=== PATIENT | female | born 1990 | race Caucasian/White ===

== ENCOUNTER 2022-06-26 21:05 | Emergency (ER) | payer SELFPAY ==
[2022-06-26] MEDS ORDERED: traMADol 50 MG Tab PO ONE (21:25)
[2022-06-26 21:47] VITALS: BP 124/61; PULSE 59
== END 2022-06-26 21:40 | disposition home or self-care (01) ==
LOC: MW.ED 21:05
DX: K04.7 Periapical abscess without sinus (principal)
CPT/HCPCS: 99282; A9270

== ENCOUNTER 2023-04-11 14:29 | Emergency (ER) | payer SELFPAY ==
[2023-04-11] MEDS ORDERED: Sodium Chloride 0.9% 10 ML Syringe FLUSH PRN (14:50)
[2023-04-11] MEDS ORDERED: Sodium Chloride 0.9% 2.5 ML Syringe FLUSH PRN (14:50)
[2023-04-11 15:13] LABS: BASOPHILS PERCENT AUTO 0.3 % (0.0-1.5); EOSINOPHILS ABSOLUTE AUTO 0.3 K/uL (0.0-0.7); EOSINOPHILS PERCENT AUTO 4.8 % (0.0-7.0); HEMATOCRIT 39.3 % (36.0-46.0); HEMOGLOBIN 13.7 g/dL (12.0-16.0); LYMPHOCYTES ABSOLUTE AUTO 2.5 K/uL (0.6-2.4); LYMPHOCYTES PERCENT AUTO 34.8 % (16.0-40.0); MEAN CORPUSCULAR HEMOGLOBIN 31.6 pg (27.0-32.0); MEAN CORPUSCULAR HGB CONC 34.9 g/dL (31.0-37.0); MEAN CORPUSCULAR VOLUME 90.6 fL (80.0-98.0); MONOCYTES ABSOLUTE AUTO 0.5 K/uL (0.0-0.8); MONOCYTES PERCENT AUTO 7.5 % (0.0-15.0); NEUTROPHILS ABSOLUTE AUTO 3.7 K/uL (1.4-5.7); NEUTROPHILS PERCENT AUTO 52.6 % (48.0-80.0); NRBC ABSOLUTE 0 K/uL; PLATELET COUNT,PLT 321 K/uL (150-400); RED BLOOD CELL COUNT 4.34 M/uL (4.30-5.90)
[2023-04-11 15:45] LABS: A/G RATIO 0.8 (0.9-1.6); ALANINE AMINOTRANSFERASE,ALT 36 IU/L (14-63); ALBUMIN 3.5 g/dL (3.4-5.0); ALKALINE PHOSPHATASE 70 U/L (46-116); ASPARTATE AMNIOTRANSFERASE,AST 25 IU/L (15-37); BILIRUBIN TOTAL 0.3 mg/dL (0.2-1.0); BLOOD UREA NITROGEN,BUN 9 mg/dL (7.0-18.0); CALCIUM 8.4 mg/dL (8.5-10.1); CARBON DIOXIDE,CO2 21.9 mmol/L (21.0-32.0); CHLORIDE,CL 107 mmol/L (98-107); CREATININE 0.7 mg/dL (0.6-1.0); EST CRCL DRUG DOSING (CG) 83.64 mL/min; GLUCOSE RANDOM 90 mg/dL (74-106); LIPASE 35 U/L (16-77); POTASSIUM,K 3.4 mmol/L (3.5-5.1); PROTEIN TOTAL,TP 7.7 g/dL (6.4-8.2); SODIUM,NA 141 mmol/L (136-145); TSH ULTRASENSITIVE 1.52 uIU/mL (0.36-3.74)
[2023-04-11 15:47] LABS: ESTIMATED GFR 119 mL/min (>60)
[2023-04-11] MEDS ORDERED: Potassium Chloride 10% 20 MEQ/15 ML Soln 15 ML UD Cup PO ONE (16:00)
[2023-04-11 18:15] VITALS: BP 124/74; PULSE 78
== END 2023-04-11 18:15 | disposition home or self-care (01) ==
LOC: MW.ED 14:29
DX: R07.89 Other chest pain (principal); E87.6 Hypokalemia
CPT/HCPCS: 36415; 71046; 80053; 83690; 84443; 84484; 84703; 85025; 85379; 93005; 99285; A9270; J3490; 93010; 99283

== ENCOUNTER 2023-07-14 11:07 | Emergency (ER) | payer SELFPAY ==
[2023-07-14] MEDS ORDERED: Ondansetron 4 MG/2 ML SDV IVPUSH ONE (11:59)
[2023-07-14] MEDS ORDERED: Sodium Chloride 0.9% 1,000 ML IV ONE (11:59)
[2023-07-14] MEDS ORDERED: Morphine 4 MG/ML Syringe IVPUSH ONE (11:59)
[2023-07-14] MEDS ORDERED: Famotidine 20 MG/2 ML SDV IVPUSH ONE (12:00)
[2023-07-14] MEDS ORDERED: Alum Hydro/Mag Hydro/Simeth XS 15 ML, Lidocaine 2% 5 ML PO ONE ×2 (12:00)
[2023-07-14 12:08] LABS: BASOPHILS ABSOLUTE AUTO 0.05 K/uL (0.00-0.20); BASOPHILS PERCENT AUTO 0.5 % (0.0-1.0); EOSINOPHILS ABSOLUTE AUTO 0.22 K/uL (0.00-0.45); EOSINOPHILS PERCENT AUTO 2.4 % (0.0-6.0); HEMATOCRIT 43.1 % (37.0-47.0); HEMOGLOBIN 15.4 g/dL (12.0-16.0); IMMATURE GRAN ABSOLUTE AUTO 0.01 K/uL (0.00-0.05); IMMATURE GRAN PERCENT AUTO 0.1 % (0.0-0.4); LYMPHOCYTES ABSOLUTE AUTO 2.12 K/uL (1.00-4.80); LYMPHOCYTES PERCENT AUTO 23.1 % (24.0-44.0); MEAN CORPUSCULAR HEMOGLOBIN 31.6 pg (28.0-32.0); MEAN CORPUSCULAR HGB CONC 35.7 g/dL (32.0-36.0); MEAN CORPUSCULAR VOLUME 88.5 fL (83.0-99.0); MEAN PLATELET VOLUME 9.6 fL (9.4-12.3); MONOCYTES ABSOLUTE AUTO 0.39 K/uL (0.00-0.80); MONOCYTES PERCENT AUTO 4.2 % (0.0-8.0); NEUTROPHILS ABSOLUTE AUTO 6.39 K/uL (1.80-7.70); NEUTROPHILS PERCENT AUTO 69.7 % (41.0-71.0); PLATELET COUNT,PLT 332 K/uL (150-400); RED BLOOD CELL COUNT 4.87 M/uL (4.10-5.30); WHITE BLOOD CELL COUNT,WBC 9.18 K/uL (3.9-11.3)
[2023-07-14 12:44] LABS: ALBUMIN 4.7 g/dL (3.4-5.0); BILIRUBIN TOTAL 0.7 mg/dL (0.2-1.0); CALCIUM 9.8 mg/dL (8.5-10.1); CARBON DIOXIDE,CO2 25.9 mmol/L (21.0-32.0); CREATININE 0.8 mg/dL (0.6-1.0); EST CRCL DRUG DOSING (CG) 94.51 mL/min; MAGNESIUM 2.2 mg/dL (1.8-2.4); POTASSIUM,K 4.3 mmol/L (3.5-5.1); PROTEIN TOTAL,TP 9.2 g/dL (6.4-8.2)
[2023-07-14] MEDS ORDERED: Iopamidol 755 MG/ML 500 ML Multipack Bottle IVPUSH STA (13:12)
[2023-07-14 17:26] VITALS: BP 117/61; PULSE 58
== END 2023-07-14 16:53 | disposition home or self-care (01) ==
LOC: MW.ED 11:07
DX: K80.20 Calculus of gallbladder without cholecystitis without obstruction (principal); K21.9 Gastro-esophageal reflux disease without esophagitis; Z79.899 Other long term (current) drug therapy
CPT/HCPCS: 36415; 74177; 76705; 80053; 83690; 83735; 84703; 85025; 96361; 96374; 96375; 99284; A9270; J2405; J3490; J7030; Q9967

== ENCOUNTER 2024-07-06 06:39 | Day surgery (SDC) | payer MEDICAID ==
[2024-07-06] MEDS ORDERED: Ropivacaine 0.5% 5 MG/ML 30 ML SDV ONE (07:03)
[2024-07-06] MEDS ORDERED: Water For Injection, Sterile 20 ML ONE (07:17)
[2024-07-06] MEDS ORDERED: dexmedeTOMIDine HCl 200 MCG/2 ML SDV ONE (07:17)
[2024-07-06] MEDS ORDERED: fentaNYL 100 MCG/2 ML SDV ONE (07:19)
[2024-07-06] MEDS: Lactated Ringers 1,000 ML IV SCH (07:20)
[2024-07-06] MEDS ORDERED: Bupivacaine 0.5% 30 ML SDV ONE (07:21)
[2024-07-06] MEDS ORDERED: propofoL 500 MG/50 ML 50 ML ONE (07:30)
[2024-07-06] MEDS ORDERED: Rocuronium Bromide 50 MG/5 ML Syringe ONE ×2 (07:32→08:59)
[2024-07-06] MEDS ORDERED: Propofol 200 MG/20 ML SDV ONE ×2 (07:33→08:58)
[2024-07-06] MEDS ORDERED: Albuterol 0.083% 2.5 MG/3 ML Neb Soln NEB PRN (07:34)
[2024-07-06] MEDS ORDERED: Naloxone 0.4 MG/ML SDV IVPUSH PRN (07:34)
[2024-07-06] MEDS ORDERED: Ondansetron 4 MG/2 ML SDV IVPUSH PRN (07:34)
[2024-07-06] MEDS ORDERED: Metoclopramide 10 MG/2 ML SDV IVPUSH PRN (07:34)
[2024-07-06] MEDS ORDERED: Morphine 2 MG/ML SYRINGE IVPUSH PRN (07:34)
[2024-07-06] MEDS ORDERED: Phenylephrine HCl In 0.9% NaCl 1 MG/10 ML Syringe IVPUSH PRN (07:34)
[2024-07-06] MEDS ORDERED: fentaNYL 50 MCG/ML SDV IVPUSH PRN (07:34)
[2024-07-06] MEDS ORDERED: ceFAZolin 1 GM Vial ONE (08:11)
[2024-07-06] MEDS ORDERED: Dexamethasone 4 MG/ML 5 ML MDV ONE (08:14)
[2024-07-06] MEDS ORDERED: Ondansetron 4 MG/2 ML SDV ONE (08:14)
[2024-07-06] MEDS ORDERED: Magnesium Sulfate (4.06 MEQ/ML) 5 GM/10 ML SDV ONE (08:21)
[2024-07-06] MEDS ORDERED: Ketorolac 30 MG/ML SDV ONE (08:54)
[2024-07-06] MEDS ORDERED: Sugammadex Sodium 200 MG/2 ML VIAL IV ONE (08:54)
[2024-07-06] MEDS: HYDROmorphone 1 MG/ML Syringe IVPUSH PRN (09:43)
[2024-07-06 10:54] VITALS: PULSE 44
[2024-07-06 11:15] VITALS: BP 85/50
== END 2024-07-06 12:25 | disposition home or self-care (01) ==
LOC: MW.SDS 06:39
PROVIDERS: ATTEND Surgery
DX: K80.10 Calculus of gallbladder with chronic cholecystitis without obstruction (principal); K82.8 Other specified diseases of gallbladder; E66.3 Overweight; K21.9 Gastro-esophageal reflux disease without esophagitis; Z79.899 Other long term (current) drug therapy; Z68.25 Body mass index [BMI] 25.0-25.9, adult
CPT/HCPCS: 47562; 64488; 81025; J0131; J0665; J0690; J1100; J1171; J1885; J2405; J2704; J2795; J3010; J3490; J7120; 00790

== ENCOUNTER 2024-07-22 10:28 | Emergency (ER) | payer MEDICAID ==
[2024-07-22] MEDS ORDERED: Sodium Chloride 0.9% 2.5 ML Syringe FLUSH PRN (10:41)
[2024-07-22] MEDS ORDERED: Sodium Chloride 0.9% 10 ML Syringe FLUSH PRN (10:41)
[2024-07-22] MEDS: Sodium Chloride 0.9% 1,000 ML IV STA (10:52)
[2024-07-22] MEDS: Promethazine 25 MG/ML SDV IM STA (10:53)
[2024-07-22] MEDS: Ondansetron 4 MG/2 ML SDV IVPUSH STA (10:59)
[2024-07-22 11:07] LABS: BASOPHILS ABSOLUTE AUTO 0.06 K/uL (0.00-0.20); BASOPHILS PERCENT AUTO 0.4 % (0.0-1.0); HEMATOCRIT 37.5 % (37.0-47.0); HEMOGLOBIN 13.5 g/dL (12.0-16.0); IMMATURE GRAN ABSOLUTE AUTO 0.03 K/uL (0.00-0.05); IMMATURE GRAN PERCENT AUTO 0.2 % (0.0-0.4); LYMPHOCYTES ABSOLUTE AUTO 0.64 K/uL (1.00-4.80); LYMPHOCYTES PERCENT AUTO 4.2 % (24.0-44.0); MEAN CORPUSCULAR HEMOGLOBIN 31.5 pg (28.0-32.0); MEAN CORPUSCULAR VOLUME 87.4 fL (83.0-99.0); MEAN PLATELET VOLUME 9.3 fL (9.4-12.3); MONOCYTES ABSOLUTE AUTO 0.49 K/uL (0.00-0.80); MONOCYTES PERCENT AUTO 3.2 % (0.0-8.0); NEUTROPHILS ABSOLUTE AUTO 13.88 K/uL (1.80-7.70); PLATELET COUNT,PLT 373 K/uL (150-400); RED BLOOD CELL COUNT 4.29 M/uL (4.10-5.30)
[2024-07-22 11:37] LABS: A/G RATIO 1.4 (0.9-1.6); ALBUMIN 4.4 g/dL (3.4-5.0); BILIRUBIN TOTAL 0.9 mg/dL (0.2-1.0); CALCIUM 9.7 mg/dL (8.5-10.1); CARBON DIOXIDE,CO2 20.3 mmol/L (21.0-32.0); CREATININE 0.9 mg/dL (0.6-1.0); EST CRCL DRUG DOSING (CG) 63.86 mL/min; POTASSIUM,K 3.5 mmol/L (3.5-5.1); PROTEIN TOTAL,TP 7.6 g/dL (6.4-8.2)
[2024-07-22 11:43] LABS: MAGNESIUM 1.8 mg/dL (1.8-2.4)
[2024-07-22] MEDS: Iopamidol 755 MG/ML 500 ML Multipack Bottle IVPUSH STA (12:43)
[2024-07-22] MEDS: Prochlorperazine 10 MG/2 ML SDV IVPUSH STA (14:05)
[2024-07-22] MEDS: Ketorolac 30 MG/ML SDV IVPUSH STA (14:05)
[2024-07-22 14:46] VITALS: BP 113/61; PULSE 51
== END 2024-07-22 14:49 | disposition home or self-care (01) ==
LOC: MW.ED 10:28
DX: K52.9 Noninfective gastroenteritis and colitis, unspecified (principal); I25.2 Old myocardial infarction; K21.9 Gastro-esophageal reflux disease without esophagitis; E13.9 Other specified diabetes mellitus without complications; Z79.899 Other long term (current) drug therapy; Z75.8 Other problems related to medical facilities and other health care
CPT/HCPCS: 36415; 74177; 80053; 83690; 83735; 84484; 84703; 85025; 93005; 96361; 96372; 96374; 96375; 99284; J0780; J1885; J2550; J7030; Q9967

== ENCOUNTER 2024-07-25 06:59 | Emergency (ER) | payer MEDICAID ==
[2024-07-25] MEDS ORDERED: Sodium Chloride 0.9% 2.5 ML Syringe FLUSH PRN (07:33)
[2024-07-25] MEDS ORDERED: Sodium Chloride 0.9% 10 ML Syringe FLUSH PRN (07:33)
[2024-07-25] MEDS: Ondansetron 4 MG/2 ML SDV IVPUSH ONE (07:47)
[2024-07-25] MEDS: Lactated Ringers 1,000 ML IV ONE (07:47)
[2024-07-25 07:48] LABS: BASOPHILS ABSOLUTE AUTO 0.06 K/uL (0.00-0.20); BASOPHILS PERCENT AUTO 0.6 % (0.0-1.0); EOSINOPHILS ABSOLUTE AUTO 0.08 K/uL (0.00-0.45); EOSINOPHILS PERCENT AUTO 0.9 % (0.0-6.0); HEMATOCRIT 39.1 % (37.0-47.0); HEMOGLOBIN 14.2 g/dL (12.0-16.0); IMMATURE GRAN ABSOLUTE AUTO 0.01 K/uL (0.00-0.05); IMMATURE GRAN PERCENT AUTO 0.1 % (0.0-0.4); LYMPHOCYTES ABSOLUTE AUTO 2.39 K/uL (1.00-4.80); LYMPHOCYTES PERCENT AUTO 25.6 % (24.0-44.0); MEAN CORPUSCULAR HEMOGLOBIN 31.5 pg (28.0-32.0); MEAN CORPUSCULAR HGB CONC 36.3 g/dL (32.0-36.0); MEAN CORPUSCULAR VOLUME 86.7 fL (83.0-99.0); MEAN PLATELET VOLUME 9.2 fL (9.4-12.3); MONOCYTES ABSOLUTE AUTO 0.39 K/uL (0.00-0.80); MONOCYTES PERCENT AUTO 4.2 % (0.0-8.0); NEUTROPHILS ABSOLUTE AUTO 6.39 K/uL (1.80-7.70); NEUTROPHILS PERCENT AUTO 68.6 % (41.0-71.0); PLATELET COUNT,PLT 328 K/uL (150-400); RED BLOOD CELL COUNT 4.51 M/uL (4.10-5.30); WHITE BLOOD CELL COUNT,WBC 9.32 K/uL (3.9-11.3)
[2024-07-25 08:17] LABS: A/G RATIO 1.1 (0.9-1.6); ALBUMIN 4.2 g/dL (3.4-5.0); BILIRUBIN TOTAL 1.8 mg/dL (0.2-1.0); CALCIUM 9.4 mg/dL (8.5-10.1); CARBON DIOXIDE,CO2 23.6 mmol/L (21.0-32.0); CREATININE 0.8 mg/dL (0.6-1.0); EST CRCL DRUG DOSING (CG) 71.84 mL/min; POTASSIUM,K 3.3 mmol/L (3.5-5.1)
[2024-07-25] MEDS: Haloperidol Lactate 5 MG/ML SDV IM ONE (08:49)
[2024-07-25 09:46] VITALS: BP 125/56; PULSE 54
== END 2024-07-25 09:48 | disposition home or self-care (01) ==
LOC: MW.ED 06:59
DX: K31.84 Gastroparesis (principal); K21.9 Gastro-esophageal reflux disease without esophagitis; Z79.899 Other long term (current) drug therapy; Z90.49 Acquired absence of other specified parts of digestive tract
CPT/HCPCS: 36415; 80053; 83690; 85025; 96361; 96372; 96374; 99284; J1630; J2405; J7120